=== PATIENT | male | born 1970 ===

== ENCOUNTER 2023-10-13 06:49 | Day surgery (SDC) | payer BC ==
[~2023-10-13] VITALS: Ht 154.9 cm; Wt 80.2 kg
[2023-10-13] MEDS ORDERED: LOPE2C (07:04)
[2023-10-13] MEDS ORDERED: IBUP400 (07:05)
[2023-10-13] MEDS ORDERED: Acetaminophen325 M1 (07:05)
[2023-10-13] MEDS ORDERED: propofoL 50 ML IV ONE ×2 (07:34→08:45)
[2023-10-13] MEDS ORDERED: Lactated Ringer's 1,000 ML IV ONE ×2 (07:34→07:45)
--- NOTE | 2023-10-13 08:49 | NUR ---
10/13/23 0849 Katharine Cho PT. VERBALIZES HAVING DISCOMFORT IN HIS STOMACH FROM THE PREP.
== END 2023-10-13 09:20 | disposition home or self-care (01) ==
LOC: ORSCSDS 06:49
PROVIDERS: Internal Medicine Gastroenterology
PROC: 0DBE8ZX Excision of Large Intestine, Via Natural or Artificial Opening Endoscopic, Diagnostic (ICD-10-PCS; principal; 2023-10-13 08:00)
PROC: 0DB98ZX Excision of Duodenum, Via Natural or Artificial Opening Endoscopic, Diagnostic (ICD-10-PCS; principal; 2023-10-13 08:00)
PROC: 0DB68ZX Excision of Stomach, Via Natural or Artificial Opening Endoscopic, Diagnostic (ICD-10-PCS; principal; 2023-10-13 08:00)
DX: R10.84 Generalized abdominal pain (principal); K58.0 Irritable bowel syndrome with diarrhea; Z86.010 Personal history of colon polyps; Z87.11 Personal history of peptic ulcer disease; F32.A Depression, unspecified; F41.9 Anxiety disorder, unspecified
CPT/HCPCS: 88305; 88342; J2704; J7120